=== PATIENT | male | born 1995 | race Caucasian/White ===

== ENCOUNTER 2017-05-09 11:40 | Emergency (ER) | payer OTHER | END 2017-05-09 14:34 | disposition home or self-care (01) | LOC: M ED 11:40 | DX: J32.9 Chronic sinusitis, unspecified (principal); H92.01 Otalgia, right ear | CPT/HCPCS: 87880 ==

== ENCOUNTER 2018-05-06 08:38 | Emergency (ER) | payer OTHER ==
[~2018-05-06] VITALS: Ht 175.3 cm; Wt 68.9 kg
[~2018-05-06 08:38] MED LIST: CLAR5TAB7 PO; ZITHTAB PO
[2018-05-06] MEDS ORDERED: DAYQ1LIQ PO (08:42)
[2018-05-06 09:30] LABS: INFLUENZA A AMPLIFICATION NEGATIVE (NEGATIVE); INFLUENZA B AMPLIFICATION NEGATIVE (NEGATIVE)
[2018-05-06] MEDS ORDERED: ROBI1CAP PO (09:48)
[2018-05-06] MEDS ORDERED: ZYRTTAB8 PO (09:48)
[2018-05-06 10:03] VITALS: BP 133/88
== END 2018-05-06 10:00 | disposition home or self-care (01) ==
LOC: M ED 08:38
DX: J06.9 Acute upper respiratory infection, unspecified (principal)